=== PATIENT | male | born 1935 | race Caucasian/White ===

== ENCOUNTER → 2024-01-03 10:21 | Outpatient (REF) | payer MEDICARE, BC, SELFPAY | LOC: RAD 10:21 | PROVIDERS: ATTENDING PHYSICIAN Specialist | DX: N20.0 Calculus of kidney (principal); N13.30 Unspecified hydronephrosis | CPT/HCPCS: 76775 ==

== ENCOUNTER 2024-12-06 19:21 | Emergency (ER) | payer MEDICARE, BC, SELFPAY ==
[2024-12-06 19:29] VITALS: BP 154/95
[2024-12-06 19:55] LABS: % Basophils 0.3 % (0-2); % Eosinophils 4.2 % (0-6); % Immature Granulocytes 0.3 % (0-0.5); % Monocytes 13.9 % (1.7-9.3); % Neutrophils 71.3 % (42.2-75.2); Absolute Eosinophils 0.3 10^3/uL (0-0.7); Absolute Lymphocytes 0.6 10^3/uL (1.2-3.4); Absolute Monocytes 0.9 10^3/uL (0.1-0.6); Absolute Neutrophils 4.4 10^3/uL (1.4-6.5); Hematocrit 39.2 % (39.0-52.0); Hemoglobin 12.9 g/dL (13.0-18.0); Mean Corp Hgb Conc. 32.9 g/dL (33.0-37.0); Mean Corpuscular Hgb 29.5 pg (27.0-31.0); Mean Corpuscular Volume 89.7 fL (80.0-94.0); Mean Platelet Volume 10.8 fL (7.4-10.4); Nucleated Red Blood Cells % 0 % (-); Platelet Count 146 10^3/uL (130-400); Red Blood Cell Count 4.37 10^6/uL (4.70-6.10); Red Cell Dist. Width 14.4 % (11.5-14.5); White Blood Cell Count 6.1 10^3/uL (4.8-10.8)
[2024-12-06 20:08] LABS: COVID-19 Antigen Negative (Negative)
[2024-12-06 20:13] LABS: ALT (SGPT) 19 U/L (0-50); AST (SGOT) 26 U/L (17-59); Albumin 4.1 g/dl (3.5-5.0); Alkaline Phosphatase 56 U/L (38-126); Blood Urea Nitrogen 23 mg/dl (9-20); Carbon Dioxide 23 mmol/L (22-30); Chloride 107 mmol/L (98-107); Glucose 196 mg/dl (70-99); Potassium 4.4 mmol/L (3.5-5.1); Sodium 137 mmol/L (135-145); Total Bilirubin 0.7 mg/dl (0.2-1.3); Total Protein 6.6 g/dl (6.3-8.2); eGFR > 60.00
[2024-12-06 21:18] VITALS: BP 154/78
[2024-12-06 23:33] VITALS: BP 202/98
[2024-12-06] MEDS: DUONEB 3 ML INH (23:48)
[2024-12-06] MEDS: DECADRON 10 MG IV (23:48)
[2024-12-07 00:10] VITALS: BP 150/83
--- NOTE | 2024-12-07 01:10 | ED.GENMED ---
History of Present Illness
General
Chief Complaint: Breathing Problem
Source: patient
Exam Limitations: none
Time Seen by Provider: 12/06/24 23:30
Nursing documentation reviewed up to this point in time: agreed with
History of Present Illness
History of Present Illness:
89-year-old male past medical history of hypertension hyperlipidemia COPD presenting to the emergency department today with concerns of shortness of breath worsening over the past 2 days. He claims that this feels similar to COPD exacerbation.
Denies any chest pains fevers any recent illnesses.
Past History
Past History
ED Past Medical History: CAD, GERD, HTN, Hypercholesterolemia and IN (2005)
ED Past Surgical History: Cardiac (Coronary artery bypass graft 2006x5 vessels)
Social History
Tobacco: Non-smoker
Alcohol: None
Living: with family
Employment: Employed
Family History
Family History: Other (Noncontributory)
Review of Systems
Review of Systems
Allergies reviewed?: Yes
All Other Systems: ROS reviewed and negative except as documented in HPI and ROS
Phy Exam
Physical Exam
Physical Exam:
GENERAL: Alert , in no apparent distress
EYE: pupils equal and reactive
NECK: Supple, no significant adenopathy.
ENT: o/p clr, mmm.
CARDIAC: Regular rate and rhythm .
LUNGS: Diffuse inspiratory and expiratory wheezing
ABDOMEN: Soft, without focal tenderness, no r/g, no cvat
NEUROLOGICAL: Alert and oriented, no focal neuro deficits
SKIN: Warm and dry, skin intact.
MUSCULOSKELETAL: No edema, well perfused.
PSYCH: Normal and appropriate interaction.
Scores
Heart Failure Risk
Heart Failure Risk Score: Not Applicable
Course
Orders/Labs/Results
Orders:
Orders
12/06/24 19:33
CR Chest - 2 Views Urgent
Comment:
Reason For Exam: cough
12/06/24 19:47
COVID-19 Antigen Urgent
Source: Nasal Swab
Complete Blood Count/With Diff Urgent
Comprehensive Metabolic Panel Urgent
Influenza A+B Rapid Molecular Urgent
TALHA Source: Nasal Swab
Specimen Description:
12/06/24 23:37
Dexamethasone Sod Phosphate [Decadron] 10 mg IV NOW STA
Ipratropium/Albuterol Sulfate [Duoneb] 3 ml INH R NOW ONE
12/07/24 01:10
Azithromycin [Zithromax] 500 mg PO NOW STA
Abnormal Lab Results
12/06/24
19:47
RBC 4.37 L 10^6/uL
(4.70-6.10)
Hgb 12.9 L g/dL
(13.0-18.0)
MCHC 32.9 L g/dL
(33.0-37.0)
MPV 10.8 H fL
(7.4-10.4)
Absolute Lymphs (auto) 0.6 L 10^3/uL
(1.2-3.4)
Absolute Monos (auto) 0.9 H 10^3/uL
(0.1-0.6)
Lymphocytes % 10.0 L %
(20.5-51.1)
Monocytes % 13.9 H %
(1.7-9.3)
BUN 23 H mg/dl
(9-20)
Creatinine 0.6 L mg/dL
(0.7-1.3)
Glucose 196 H mg/dl
(70-99)
12/06/24 19:47
12/06/24 19:47
Vital Signs
Initial and Last Documented VS:
Initial Vital Signs
Temp Pulse Resp BP Pulse Ox
98 F 79 20 154/95 97
12/06/24 19:29 12/06/24 19:29 12/06/24 19:29 12/06/24 19:29 12/06/24 19:29
Last Documented Vital Signs
Temp Pulse Resp BP Pulse Ox
98 F 76 22 150/83 99
12/06/24 19:29 12/07/24 00:10 12/07/24 00:10 12/07/24 00:10 12/07/24 00:10
MDM/Problems Addressed
MDM/Problems Addressed:
89-year-old male presenting to the emergency department today with concerns of shortness of breath starting yesterday worsening today. Here he has diffuse wheezing consistent with COPD exacerbation. No evidence of pneumonia on chest x-ray labs
unremarkable. Patient treated for COPD with significant improvement after steroids and DuoNeb. Able to ambulate with good pulse ox. Stable for outpatient management. Return precautions given.
*Critical Care Note
Total Time (30-74mins, 75-104mins- exclusive of procedures): Not Applicable
ED Attending Note
-
Portions of this chart may have been created with voice recognition software.� Occasional wrong word or��sound alike� substitutions may have occurred due to the inherent limitations of voice recognition software.
Discharge Plan
Departure
Patient Disposition: Home (Routine Discharge)
Date of Disposition: 12/07/24
Time of Disposition: 01:10
Patient with high blood pressure during this ER visit?: No
Condition: Good
Covid-19: Not Applicable
Discharge Problem:
COPD exacerbation
Instructions: Exacerbation of COPD (DC)
Prescriptions:
New
azithromycin 500 mg tablet
500 mg PO DAILY 2 Days Qty: 2 0RF
prednisone 20 mg tablet
40 mg PO DAILY 4 Days Qty: 8 0RF
No Action
aspirin 81 MG tablet,delayed release (DR/EC)
81 mg PO DAILY
Patient Comments:
patient normally takes daily but patient stated he took 2 tabs at 0230 when symptoms started
simvastatin 40 MG tablet
40 mg PO QPM
metoprolol tartrate 50 MG tablet
50 mg PO DAILY
hydrochlorothiazide 25 MG tablet
25 mg PO DAILY
lisinopril [Prinivil] 40 MG tablet
40 mg PO DAILY
omeprazole 20 MG tablet,delayed release (DR/EC)
20 mg PO BID
Paxlovid 300 mg (150 mg x 2)-100 mg tablets,dose pack
See Rx Instructions .ROUTE .COMPLEX Qty: 30 0RF
Rx Instructions:
take TWO 150 mg tablets of nirmatrelvir with ONE 100 mg tablet of ritonavir twice daily for 5 days
albuterol sulfate [ProAir HFA] 90 mcg/actuation HFA aerosol inhaler
1 puff inhalation Q4HPRN PRN (Reason: shortness of breath) Qty: 6.7 0RF
Referrals:
UNKNOWN - PT DOES,NOT KNOW [Family Provider]
Activity Restrictions/Additional Instructions:
You came to the emergency department today with concerns of cough shortness of breath consistent with COPD. Please take prescribed medications and follow-up close with the primary care doctor. Return for any worsening, new or concerning symptoms.
Interventions
Interventions:
*Risk Screen - Suicide Last Done: 12/06/24 19:29
*General Assessment Last Done: 12/06/24 19:29
*Neglect/Abuse Screening Last Done: 12/06/24 19:29
*ED- Fall Risk Assessment Last Done: 12/06/24 23:29
*Nursing Disposition Last Done: 12/07/24 01:22
ED- Cardiac Assessment Last Done: 12/06/24 23:52
ED- Pulmonary Assessment Last Done: 12/06/24 23:28
Discharge Date and Time
Discharge Date/Time: 12/07/24 01:23
Print Language: DJIBOUTIAN
[2024-12-07] MEDS: ZITHROMAX 500 MG PO (01:22)
== END 2024-12-07 01:23 | disposition home or self-care (01) ==
LOC: EMR 19:21
PROVIDERS: Emergency Medicine; EMERGENCY PHYSICIAN Student in an Organized Health Care Education/Training Program
DX: J44.1 Chronic obstructive pulmonary disease with (acute) exacerbation (principal); Z11.52 Encounter for screening for COVID-19; I10 Essential (primary) hypertension; E78.00 Pure hypercholesterolemia, unspecified; I25.10 Atherosclerotic heart disease of native coronary artery without angina pectoris; K21.9 Gastro-esophageal reflux disease without esophagitis; I25.2 Old myocardial infarction; Z95.1 Presence of aortocoronary bypass graft; Z79.82 Long term (current) use of aspirin; Z91.048 Other nonmedicinal substance allergy status
CPT/HCPCS: 99284; 96374; 94640; 71046; 80053; 85025; 87502; 87811

== ENCOUNTER → 2025-01-16 12:19 | Outpatient (REF) | payer MEDICARE, BC, SELFPAY | LOC: RAD 12:19 | PROVIDERS: ATTENDING PHYSICIAN Nurse Practitioner Family | DX: R05.9 Cough, unspecified (principal) | CPT/HCPCS: 71046 ==